=== PATIENT | female | born 1940 | race Caucasian/White ===

== ENCOUNTER 2016-12-30 23:01 | Observation (INO) | payer MEDICARE ==
[2016-12-28 12:38] LABS: CALCIUM, SERUM 9.7 MG/DL (8.5-10.4); CHLORIDE, SERUM 94 MMOL/L (96-112); CO2 (CARBON DIOXIDE) 31 MMOL/L (24-34); CREATININE 0.77 MG/DL (0.55-1.02); GFR AFRICAN AMERICAN 88 ML/MIN (>=60); GFR NON AFRICAN AMERICAN 76 ML/MIN (>=60); GLUCOSE, SERUM 127 MG/DL (60-99); POTASSIUM, SERUM 3.8 MMOL/L (3.5-5.3); SODIUM, SERUM 132 MMOL/L (135-148)
[2016-12-28 12:39] LABS: BUN (BLOOD UREA NITROGEN) 14 MG/DL (6-23)
[~2016-12-30] VITALS: Ht 157.5 cm; Wt 68.5 kg
--- NOTE | ~2016-12-30 | HP ---
History And Physical [place] [address] [facility] [place]. [address] NAME: YUSEF EID : [id number] STATUS : ADM Verito PAT#: [id number] AGE: 76 ADM/REG DATE : 12/31/16 MR#: [id number] REPORT SERV DATE: 12/31/16 DICTATED BY: VIC LAINEZ DATE: 12/31/16 REPORT STATUS : Draft TRANSCRIBED BY: MODCiaran DATE: 12/31/16 DATE OF ADMISSION: 12/31/2016 SHOE HANDLER: Vidal Barnett M.D. CHIEF COMPLAINT: Elevated systolic blood pressure with chest pain. HISTORY OF PRESENT ILLNESS: A very pleasant 76-year-old white female with known history of mild CAD identified by a CTA in 2010 with nonobstructive proximal to mid LAD and proximal RCA disease. Calcium score 650. The patient states that on December 30 around 2099, her blood pressure was elevated at 230 systolic. She states that she developed left-sided chest pain described as a pressure with some radiation toward her left arm, but particularly tingling in her 4th and 5th digits of her left hand. She states she has had episodic elevated blood pressure and chest pain since December 27. She did notify the [facility] and states she was told to "just relax." The patient states that these episodes occur randomly, there is no clear exertional component. She denies any stressor or argumentative discussion. At its most intense, her chest pain was rated a 5/10, at time of interview in the CPOU, she is pain free. The episode lasted approximately 1 to 2 minutes in duration. She took full dose aspirin prior to coming to the hospital. EMS gave her nitroglycerin with relief of her chest pain returned. She denies any associated shortness of breath, nausea, diaphoresis, dizziness, or belching. The patient denies any personal history of myocardial infarction, stroke, DVT, or pulmonary embolus. The patient denies any recent fever or chills. Describes occasional palpitations. Rarely consumes a caffeinated beverages. No syncopal events. Denies PND or orthopnea. PAST MEDICAL HISTORY: 1. Mild CAD by CTA 2010 with nonobstructive proximal and mid LAD and proximal RCA disease. Calcium score 650. 2. Hypertension. 3. Dyslipidemia. 4. AODM. 5. Denies sleep apnea. 6. Vertigo. PAST SURGICAL HISTORY: 1. Cholecystectomy. 2. Multiple back injections. 3. Hysterectomy. 4. Back surgery. 5. Breast biopsy (benign). 6. Cataract surgery. 7. Appendectomy. SOCIAL HISTORY: She is with three children. 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 Does not have a structured exercise routine. Denies tobacco, alcohol, or illicits. History And Physical [address] [address] NAME: YUSEF EID : [id number] STATUS : ADM Verito PAT#: [id number] AGE: 76 ADM/REG DATE : 12/31/16 MR#: [id number] REPORT SERV DATE: 12/31/16 DICTATED BY: VIC LAINEZ DATE: 12/31/16 REPORT STATUS : Draft TRANSCRIBED BY: ALFONSO DATE: 12/31/16 FAMILY HISTORY: Mother with a history of DVT in her 60s, at 85. Sister with CAD and bypass, and 2 strokes in her 60s, alive at 66. REVIEW OF SYSTEMS: A 14-point review of systems performed, significant for HPI. No other contributory diagnoses identified. ALLERGIES: NO KNOWN DRUG ALLERGIES HOME. HOME MEDICATIONS: Tylenol p.r.n., Xanax 0.25 mg p.r.n., Artificial Tears p.r.n., aspirin 81 mg daily, Tums p.r.n., carvedilol 12.5 mg twice daily, vitamin D3, 1000 units daily, gabapentin 100 mg daily p.r.n., isosorbide 30 mg daily, metformin 1000 mg with supper 500 daily multivitamin daily, nitroglycerin spray p.r.n., pravastatin 40 mg nightly, Zoloft 25 mg daily, Desyrel 50 mg daily p.r.n. PHYSICAL EXAMINATION: VITAL SIGNS: Bilateral blood pressures on arrival, right 209/81, left 198/80, pulse 54, respirations 16, temperature 98.0, O2 saturation 96% on room air. Height 5 feet 2 inches, weight 151 pounds, BMI 27.6. GENERAL: Cooperative, in no apparent distress. HEENT: Pupils 2 mm, sclera nonicteric. Nares patent. Moist mucous membranes. No xanthelasma. NECK: Trachea midline, no thyromegaly. No JVD. No bruits. LYMPH: No cervical lymphadenopathy. No supraclavicular lymphadenopathy. RESPIRATORY: Unlabored respirations. Breath sounds clear bilaterally to posterior auscultation. No wheezes or rhonchi. CARDIOVASCULAR: Regular rate. No murmur, rub or gallop appreciated. Extremities without edema. Pulses 2+ bilaterally. Trace to 1+ ankle edema. ABDOMEN: Soft, nontender, nondistended, normal bowel sounds auscultated throughout. No organomegaly. SKIN: Warm, dry extremities. No pallor, or cyanosis. PSYCHIATRIC: Appropriate affect. Alert, oriented x3. LABORATORY DATA: Troponin less than 0.02 x 3, potassium 3.6, BUN 20, creatinine 0.92, glucose 181, magnesium 1.5, WBC 7.2, hemoglobin 11.5, hematocrit 33.0, platelet count 231,000. EKG, sinus rhythm. PRWP. Echo, 09/2015: EF 65%. Mild diastolic dysfunction. MPI 2010: Tai stage 2, 6:05 minutes, 7 METs, no ischemia. TMO, 2011: CAEP stage 6, 11:45 minutes, no ischemic changes. No chronotropic incompetence. Negative adequate pM0. ASSESSMENT AND PLAN: 1. Substernal chest pain with typical and atypical features. The patient has been observed in the CPOU overnight to rule out myocardial infarction with serial enzymes and serial EKGs, and held n.p.o. We will proceed with MPI today versus CAT. The patient will be discharged home if negative study. If anything suggestive of ischemia, Cardiology referral will be initiated. Otherwise, the patient will be asked to follow History And Physical [address] [address] NAME: YUSEF EID : [id number] STATUS : ADM Verito PAT#: [id number] AGE: 76 ADM/REG DATE : 12/31/16 MR#: [id number] REPORT SERV DATE: 12/31/16 DICTATED BY: VIC LAINEZ DATE: 12/31/16 REPORT STATUS : Draft TRANSCRIBED BY: ALFONSO DATE: 12/31/16 up her PCP and Dr. Barnett as appropriate. 2. Hypertension. Monitor blood pressure p.r.n. hydralazine. Home medications as warranted. 3. Dyslipidemia. Continue statin. 4. Hypomagnesemia. Replete per protocol. ESTEFANY/MODL CORINA Grewal, APPLICATION SECURITY ENGINEER-BC / [id number] CC: CORINA Grewal, APPLICATION SECURITY ENGINEER-BC Kyle Wang M.D. Vidal Barnett M.D.
[~2016-12-30 23:01] MED LIST: ACET500CAP PO; AMARYL1 MG PO; AMB5 PO; ASAB PO; BENICAR HCT1 TA2 PO; CALCIUM MAG ZINC PO; CALTRA600D PO; CARDU4 PO; CARDURA8 MG PO; CO Q-10100 MG PO; COREG3 PO; CYANO1000T PO; FISH-EPA1000 MG PO; FORTAMET1000 MG PO; GLUCOPHXR PO; JANUMET1 TAB PO; LORTAB 5 PO; LORTAB10 PO; MULTIPLE VIT PO; NITROSPRAY SL; NORV10 PO; NORV5 PO; PRAVACHOL40 MG PO; PRILO PO; REST15 PO; RESTASIS OPH; SINGULAIR1 PO; SPIRO25 PO; SPIRO50 PO; STARLIX120 PO; TUMSROLL PO; ULTRAM50 PO; VITAMIN D31000 UNIT PO; X25 PO; ZANTAC150 MG PO; [UNRECOGNIZED DRUG - OTHER] PO
[2016-12-31 00:11] LABS: BASOPHILS 0.3 %; BASOPHILS ABSOLUTE 0.02 10/3/uL (0.0-0.16); EOSINOPHILS 1.7 %; EOSINOPHILS ABSOLUTE 0.12 10/3/uL (0.0-0.53); ER CBC TAT 0 Hrs 00 Mins; HEMOGLOBIN 11.5 g/dL (12.0-16.0); IMMATURE GRANULOCYTES 0.3 %; IMMATURE GRANULOCYTES ABSOLUTE 0.02 10/3/uL (0.0-0.11); LYMPHOCYTES 26.5 %; LYMPHOCYTES ABSOLUTE 1.92 10/3/uL (0.67-4.30); MANUAL DIFF NO %; MEAN CORPUS HGB CONC 34.8 g/dL (32.0-36.0); MEAN CORPUSCULAR HEMOGLOB 29.3 pg (26.0-34.0); MEAN PLATELET VOLUME 9.5 fL (9.2-13.0); MONOCYTES 9.7 %; NEUTROPHILS 61.5 %; NEUTROPHILS ABSOLUTE 4.46 10/3/uL (2.02-8.40); PLATELET COUNT 231 10/3/uL (150-400); RED CELL COUNT 3.93 10/6/uL (4.0-5.6); WHITE BLOOD CELLS 7.2 10/3/uL (4.5-10.5)
[2016-12-31] MEDS ORDERED: ACET500CAP PO (00:13)
[2016-12-31] MEDS ORDERED: X25 PO (00:14)
[2016-12-31] MEDS ORDERED: HALF81 PO (00:14)
[2016-12-31] MEDS ORDERED: COREG12 PO (00:15)
[2016-12-31] MEDS ORDERED: GLUCPH PO (00:16)
[2016-12-31] MEDS ORDERED: NEUR100 PO (00:16)
[2016-12-31] MEDS ORDERED: IMDUR30 PO (00:16)
[2016-12-31 00:17] LABS: PARTIAL THROMBO TIME 28.7 SEC (22.5-37.2); PROTIME (NOT ORD) 12.9 SEC (12.0-14.5)
[2016-12-31] MEDS ORDERED: GLUCOPHAGE1000 MG PO (00:17)
[2016-12-31] MEDS ORDERED: NITROLINGUAL S4.9 GM SL (00:17)
[2016-12-31] MEDS ORDERED: MULTIVIT/MIN PO (00:17)
[2016-12-31] MEDS ORDERED: PRAVACHOL40 MG PO (00:17)
[2016-12-31] MEDS ORDERED: VITAMIN D31000 UNIT PO (00:18)
[2016-12-31] MEDS ORDERED: DIOVAN HCT320 MG/25 PO (00:18)
[2016-12-31] MEDS ORDERED: ZOLOFT25 MG PO (00:18)
[2016-12-31] MEDS ORDERED: TRAZ50 PO (00:18)
[2016-12-31] MEDS ORDERED: TEARS PURE OPH (00:19)
[2016-12-31] MEDS ORDERED: TUMS E-X750 M2 PO (00:19)
[2016-12-31 00:26] LABS: CALCIUM, SERUM 9.5 MG/DL (8.5-10.4); CHEST PAIN PROFILE TAT 0 Hrs 00 Mins; CHLORIDE, SERUM 96 MMOL/L (96-112); CO2 (CARBON DIOXIDE) 29 MMOL/L (24-34); CREATININE 0.92 MG/DL (0.55-1.02); GFR AFRICAN AMERICAN 71 ML/MIN (>=60); GFR NON AFRICAN AMERICAN 61 ML/MIN (>=60); POTASSIUM, SERUM 3.6 MMOL/L (3.5-5.3); SODIUM, SERUM 134 MMOL/L (135-148); TROPONIN I <0.02 NG/ML (<0.05)
[2016-12-31 00:27] LABS: BUN (BLOOD UREA NITROGEN) 20 MG/DL (6-23); GLUCOSE, SERUM 181 MG/DL (60-99)
[2016-12-31] MEDS ORDERED: MAGOX4 PO (16:37)
[2017-01-07] MEDS ORDERED: HALF81 PO (15:05)
[2017-01-07] MEDS ORDERED: ZOLOFT25 MG PO (15:06)
[2017-01-07] MEDS ORDERED: MAGNESIUM 400 MG PO (15:06)
[2017-01-07] MEDS ORDERED: BIDIL20/37 PO (15:06)
[2017-01-07] MEDS ORDERED: FORTAMET500 MG PO (15:07)
[2017-01-07] MEDS ORDERED: PRAVACHOL40 MG PO (15:07)
[2017-01-07] MEDS ORDERED: DIOVAN HCT320 MG/25 PO (15:08)
[2017-01-07] MEDS ORDERED: COREG6 PO (15:08)
[2017-01-07] MEDS ORDERED: ACET500CAP PO (15:09)
[2017-01-07] MEDS ORDERED: X25 PO (15:09)
[2017-01-07] MEDS ORDERED: NEUR100 PO (15:10)
[2017-01-07] MEDS ORDERED: MULTIVITAMI1 PO (15:10)
[2017-01-07] MEDS ORDERED: NITROLINGUAL S4.9 GM SL (15:11)
[2017-01-07] MEDS ORDERED: TRAZ50 PO (15:11)
[2017-01-07] MEDS ORDERED: VITAMIN D31000 UNIT PO (15:11)
[2017-01-08] MEDS ORDERED: ISOSORB DIN30 MG PO (16:52)
== END 2016-12-31 17:05 | disposition home or self-care (01) ==
LOC: ER 23:01 → ER/OF 12-31 02:42 → CDU1 12-31 02:42 → CDU2 12-31 02:42 → CDU1 12-31 06:03 → CDU2 12-31 06:24
PROVIDERS: Internal Medicine Cardiovascular Disease; Nurse Practitioner Acute Care
DX: R07.2 Precordial pain (principal); I10 Essential (primary) hypertension; E78.5 Hyperlipidemia, unspecified; E83.42 Hypomagnesemia; I25.10 Atherosclerotic heart disease of native coronary artery without angina pectoris; E11.9 Type 2 diabetes mellitus without complications; Z90.49 Acquired absence of other specified parts of digestive tract; Z90.710 Acquired absence of both cervix and uterus; Z98.49 Cataract extraction status, unspecified eye; Z79.82 Long term (current) use of aspirin; Z79.899 Other long term (current) drug therapy
CPT/HCPCS: 36415; 71010; 78452; 80048; 83735; 84484; 85025; 85610; 85730; 93005; 93017; 96374; 99285; A9270-GY; A9502; G0378; J0360; J2785; J3475